=== PATIENT | female | born 1955 | race Caucasian/White ===

== ENCOUNTER → 2017-10-30 | Outpatient (CLI) | payer BC ==
[2017-10-30 11:19] LABS: CLARITY,URINE Clear (Clear); COLOR,URINE Yellow (Yellow); GLUCOSE, URINE Negative (Neg); KETONES,URINE Negative (Neg); LEUKOCYTE ESTERASE ,URINE Trace (Neg); NITRITES, URINE Negative (Neg); OCCULT BLOOD,URINE Negative (Neg); PROTEIN,URINE Negative (Neg); UROBILINOGEN,URINE 0.2 E.U/dL (0.2-1.0)
[2017-10-30 11:19] LABS: BASOPHILS % (AUTO) 0.4 % (0-1); EOSINOPHILS # (AUTO) 0.1 X10'3 (0-0.9); EOSINOPHILS % (AUTO) 2.6 % (0-6); HEMATOCRIT 38.3 % (35.0-45.0); HEMOGLOBIN 13.2 g/dl (12.0-16.0); LYMPHOCYTES # (AUTO) 1.5 X10'3 (1.1-4.8); LYMPHOCYTES % (AUTO) 29.3 % (21-51); MEAN CORPUSCULAR HEMOGLOBIN 30.1 PG (27.0-31.0); MEAN CORPUSCULAR HGB CONC 34.3 % (33.0-36.5); MEAN CORPUSCULAR VOLUME 87.6 FL (78-98); MONOCYTES # (AUTO) 0.5 X10'3 (0-0.9); MONOCYTES % (AUTO) 10.4 % (2-12); NEUTROPHILS # (AUTO) 3.1 X10'3 (1.8-7.7); NEUTROPHILS % (AUTO) 57.3 % (42-75); PLATELET COUNT 222 X10'3 (140-440); RED BLOOD COUNT 4.38 X10'6 (4.20-5.60); RED CELL DISTRIBUTION WIDTH 12.1 % (11.5-14.5); WHITE BLOOD COUNT 5.2 X10'3 (4.5-11.0)
[2017-10-30 11:25] LABS: PROTHROMBIN TIME 10.3 SECONDS (9.0-12.0)
[2017-10-30 11:42] LABS: UA COLLECTION TYPE CLN CATCH MIDSTREAM
[2017-10-30 11:43] LABS: ALANINE AMINOTRANSFERASE 30 U/L (12-78); ALBUMIN 3.7 G/DL (3.4-5.0); ALBUMIN/GLOBULIN RATIO 0.9 (1.1-1.5); ALKALINE PHOSPHATASE 62 IU/L (46-116); ANION GAP 3 (8-16); ASPARTATE AMINO TRANSFERASE 22 U/L (10-37); BILIRUBIN,TOTAL 0.5 MG/DL (0.1-1.0); BLOOD UREA NITROGEN 13 MG/DL (7-18); BUN/CREATININE RATIO 18.6 (6.6-38.0); CALCIUM 9.4 MG/DL (8.5-10.1); CHLORIDE 105 MMOL/L (99-107); GLUCOSE 87 MG/DL (70-104); POTASSIUM 4.4 MMOL/L (3.5-5.1); SODIUM 140 MMOL/L (135-145); TOTAL CARBON DIOXIDE 32.4 MMOL/L (24-32); TOTAL PROTEIN 7.7 G/DL (6.4-8.2); eGFR 84 ML/MIN
[2017-10-30 11:44] LABS: BACTERIA,URINE FEW /HPF (Neg); WBC,URINE 0-4 /HPF (0-4)
[2017-10-30 11:45] LABS: SQUAMOUS EPITHELIAL CELL,UR FEW /LPF (FEW)
== END ==
LOC: LAB 10:28
PROVIDERS: ATTEND Specialist
DX: Z01.818 Encounter for other preprocedural examination (principal); Z51.81 Encounter for therapeutic drug level monitoring; N39.0 Urinary tract infection, site not specified
CPT/HCPCS: 36415; 80053; 81001; 85025; 85610; 87070; 87088

== ENCOUNTER 2017-11-13 05:28 | Inpatient (IN) | payer BC ==
[~2017-11-13] VITALS: Ht 174 cm; Wt 98.5 kg
[2017-11-13] VITALS (17 sets, daily range): BP systolic 104–141; BP diastolic 60–82
[~2017-11-13 05:28] MED LIST: ACET-2319 PO; ACET-75 PO; ASPI-611 PO; CHOL400T PO; ESTR0.5T PO; MELA3TAB PO; MULT-38 PO; OMEG1000; TURM500C4; [UNRECOGNIZED DRUG - CODE] PO; ringers solution, lacted 1,000 ML IV SCH
[2017-11-13] MEDS ORDERED: famotidine 20mg tablet PO ONE (05:30)
[2017-11-13] MEDS ORDERED: cefazolin/dext.iso 2gm/50ml 50 ML IV ONE (05:30)
[2017-11-13] MEDS ORDERED: LIDOcaine 1% (10mg/ml) 2ml vial ONE (05:55)
[2017-11-13] MEDS ORDERED: gabapentin 300mg capsule PO ONE (06:11)
[2017-11-13] MEDS ORDERED: oxyCODONE SR 10mg (sust. release) tab PO ONE (06:11)
[2017-11-13] MEDS ORDERED: tranexamic acid inj. 1,000 MG in normal saline 100ml IV soln 90 ML IV ONE (06:15)
[2017-11-13] MEDS ORDERED: acetaminophen 325mg tablet PO ONE (06:15)
[2017-11-13] MEDS ORDERED: ROPIVAcaine 0.5% (5mg/ml) 30ml vial ONE ×2 (06:45→08:52)
[2017-11-13] MEDS ORDERED: bacitracin inj 150,000 UNIT in sodium chloride irrig. sol 3,000 ML IR ONE (07:00)
[2017-11-13] MEDS ORDERED: dexamethasone 4mg/ml inj ONE (07:18)
[2017-11-13] MEDS ORDERED: cloNIDine hcl/PF 100mcg/ml inj ONE (07:18)
[2017-11-13] MEDS ORDERED: diphenhydrAMINE 50 mg/ml inj ONE (07:18)
[2017-11-13] MEDS ORDERED: fentaNYL/PF 50MCG/1 ML 2ML syringe ONE (07:19)
[2017-11-13] MEDS ORDERED: midazolam 2 mg/2 ml injection ONE ×2 (07:19→07:20)
[2017-11-13] MEDS ORDERED: MORPHINE SULFATE/PF 0.5 MG/ML 10ML AMPUL ONE (07:31)
[2017-11-13] MEDS ORDERED: LIDOcaine 1%/PF (10mg/ml) 5ml vial ONE (07:52)
[2017-11-13] MEDS ORDERED: glycopyrrolate 0.2mg/ml inj ONE (08:52)
[2017-11-13] MEDS ORDERED: ceFAZolin 1000mg inj ONE (08:52)
[2017-11-13] MEDS ORDERED: propofol inj 20 ML IV ONE ×2 (08:52)
[2017-11-13] MEDS ORDERED: ringers solution, lacted 1,000 ML IV SCH (08:56)
[2017-11-13] MEDS ORDERED: naloxone 2mg/2ml inj 2 MG in normal saline 500ml IV soln 500 ML IV PRN (08:56)
[2017-11-13] MEDS ORDERED: meperidine/PF 25mg/ml syringe IV PRN ×3 (09:00)
[2017-11-13] MEDS ORDERED: morphine 2 MG/ML inj. syringe IV PRN ×2 (09:00)
[2017-11-13] MEDS ORDERED: ondansetron/PF 4mg/2ml inj IV PRN ×3 (09:00→10:15)
[2017-11-13] MEDS ORDERED: diphenhydrAMINE 50 mg/ml inj IV PRN (09:00)
[2017-11-13] MEDS ORDERED: proCHLORperazine 10 MG/2 ml inj IV PRN (09:00)
[2017-11-13] MEDS ORDERED: ePHEDrine 50MG/ML INJ. ONE (09:28)
[2017-11-13] MEDS ORDERED: epiNEPHrine 1 mg/ml inj ONE (09:28)
[2017-11-13] MEDS: potassium cl 20mEq in 1/2 NS 1,000 ML IV SCH ×2 (10:15→20:29)
[2017-11-13] MEDS ORDERED: HYDROmorphone 1 mg/ml syringe IV PRN (10:15)
[2017-11-13] MEDS ORDERED: bisacodyl 10mg suppository rectal RC PRN (10:15)
[2017-11-13] MEDS ORDERED: acetaminophen 325mg tablet PO PRN (10:15)
[2017-11-13] MEDS ORDERED: magnesium hydroxide 30ml (MOM) UD suspension PO PRN (10:15)
[2017-11-13] MEDS ORDERED: diphenhydrAMINE 25mg capsule PO PRN ×2 (10:15)
[2017-11-13] MEDS: gabapentin 300mg capsule PO SCH ×2 (14:17→20:28)
[2017-11-13] MEDS: acetaminophen 325mg tablet PO SCH ×2 (14:18→20:28)
[2017-11-13] MEDS: oxyCODONE IR 5mg (immed. release) tablet PO PRN ×2 (16:36→20:33)
[2017-11-13] MEDS: cefazolin 1gm/NS 100mL 100 ML IV SCH (16:36)
[2017-11-13] MEDS: ascorbic acid 500mg tablet PO SCH (20:28)
[2017-11-13] MEDS: celeCOXIB 100mg capsule PO SCH (20:28)
[2017-11-13] MEDS: sennosides 8.6mg tablet PO SCH (20:28)
[2017-11-14] MEDS: cefazolin 1gm/NS 100mL 100 ML IV SCH (00:32)
[2017-11-14 02:00] VITALS: BP 134/67
[2017-11-14] MEDS: acetaminophen 325mg tablet PO SCH ×4 (02:09→20:00)
[2017-11-14] MEDS: oxyCODONE IR 5mg (immed. release) tablet PO PRN ×3 (02:09→20:33)
[2017-11-14] MEDS: potassium cl 20mEq in 1/2 NS 1,000 ML IV SCH ×2 (02:15→05:42)
[2017-11-14 05:00] VITALS: BP 126/69
[2017-11-14 05:51] LABS: BASOPHILS % (AUTO) 0.3 % (0-1); EOSINOPHILS # (AUTO) 0.1 X10'3 (0-0.9); EOSINOPHILS % (AUTO) 1.4 % (0-6); HEMATOCRIT 28.9 % (35.0-45.0); HEMOGLOBIN 10.1 g/dl (12.0-16.0); LYMPHOCYTES # (AUTO) 1.5 X10'3 (1.1-4.8); LYMPHOCYTES % (AUTO) 21.4 % (21-51); MEAN CORPUSCULAR HEMOGLOBIN 29.8 PG (27.0-31.0); MEAN CORPUSCULAR HGB CONC 34.7 % (33.0-36.5); MEAN CORPUSCULAR VOLUME 85.9 FL (78-98); MEAN PLATELET VOLUME 8.2 FL (7.4-10.4); MONOCYTES # (AUTO) 0.9 X10'3 (0-0.9); MONOCYTES % (AUTO) 12.7 % (2-12); NEUTROPHILS # (AUTO) 4.4 X10'3 (1.8-7.7); NEUTROPHILS % (AUTO) 64.2 % (42-75); PLATELET COUNT 162 X10'3 (140-440); RED BLOOD COUNT 3.37 X10'6 (4.20-5.60); RED CELL DISTRIBUTION WIDTH 12.5 % (11.5-14.5); WHITE BLOOD COUNT 6.8 X10'3 (4.5-11.0)
[2017-11-14 05:59] LABS: INR 1.1 INR; PROTHROMBIN TIME 11.8 SECONDS (9.0-12.0)
[2017-11-14 06:00] LABS: ANION GAP 6 (8-16); CHLORIDE 107 MMOL/L (99-107); POTASSIUM 4.2 MMOL/L (3.5-5.1); SODIUM 141 MMOL/L (135-145); TOTAL CARBON DIOXIDE 27.6 MMOL/L (24-32)
[2017-11-14] MEDS: multivitamins, therapeutics tablet PO SCH (07:06)
[2017-11-14] MEDS: gabapentin 300mg capsule PO SCH ×3 (07:06→20:43)
[2017-11-14] MEDS: celeCOXIB 100mg capsule PO SCH ×2 (07:06→20:33)
[2017-11-14] MEDS: ascorbic acid 500mg tablet PO SCH ×2 (07:07→20:33)
[2017-11-14 10:00] VITALS: BP 139/65
[2017-11-14] MEDS ORDERED: warfarin 10mg tablet PO ONE (10:00)
[2017-11-14 15:00] VITALS: BP 144/70
[2017-11-14 18:00] VITALS: BP 151/72
[2017-11-14] MEDS: sennosides 8.6mg tablet PO SCH (20:34)
[2017-11-14 22:00] VITALS: BP 144/70
[2017-11-15] MEDS: acetaminophen 325mg tablet PO SCH ×3 (02:00→07:02)
[2017-11-15] MEDS: oxyCODONE IR 5mg (immed. release) tablet PO PRN (02:48)
[2017-11-15 06:00] VITALS: BP 146/61
[2017-11-15 06:38] LABS: INR 1.3 INR; PROTHROMBIN TIME 13.3 SECONDS (9.0-12.0)
[2017-11-15 06:43] LABS: BASOPHILS % (AUTO) 0.2 % (0-1); EOSINOPHILS # (AUTO) 0.2 X10'3 (0-0.9); EOSINOPHILS % (AUTO) 3.6 % (0-6); HEMOGLOBIN 11.2 g/dl (12.0-16.0); LYMPHOCYTES # (AUTO) 1.6 X10'3 (1.1-4.8); LYMPHOCYTES % (AUTO) 24.2 % (21-51); MEAN CORPUSCULAR HEMOGLOBIN 30.2 PG (27.0-31.0); MEAN CORPUSCULAR HGB CONC 35.1 % (33.0-36.5); MEAN CORPUSCULAR VOLUME 85.9 FL (78-98); MEAN PLATELET VOLUME 8.7 FL (7.4-10.4); MONOCYTES # (AUTO) 0.7 X10'3 (0-0.9); MONOCYTES % (AUTO) 11.1 % (2-12); NEUTROPHILS % (AUTO) 60.9 % (42-75); PLATELET COUNT 185 X10'3 (140-440); RED BLOOD COUNT 3.72 X10'6 (4.20-5.60); RED CELL DISTRIBUTION WIDTH 12.6 % (11.5-14.5); WHITE BLOOD COUNT 6.5 X10'3 (4.5-11.0)
[2017-11-15] MEDS: celeCOXIB 100mg capsule PO SCH (07:01)
[2017-11-15] MEDS: multivitamins, therapeutics tablet PO SCH (07:01)
[2017-11-15] MEDS: ascorbic acid 500mg tablet PO SCH (07:01)
[2017-11-15] MEDS: gabapentin 300mg capsule PO SCH (07:02)
[2017-11-15] MEDS ORDERED: ASPI-1 PO (07:19)
[2017-11-15] MEDS ORDERED: warfarin 7.5mg tablet PO ONE (10:00)
[2017-11-15] MEDS ORDERED: acetaminophen 325mg tablet PO PRN (10:15)
== END 2017-11-15 10:35 | disposition home health service (06) | DRG 470 ==
LOC: PAS IN 05:28 → EDSTATUS 07:30 → ORTHO 4S 11:04
PROVIDERS: ADMIT Specialist; ATTEND Specialist
PROC: 3E0T3BZ Introduction of Anesthetic Agent into Peripheral Nerves and Plexi, Percutaneous Approach (ICD-10-PCS; 2017-11-13)
PROC: 0SRC0J9 Replacement of Right Knee Joint with Synthetic Substitute, Cemented, Open Approach (ICD-10-PCS; principal; 2017-11-13 07:16)
DX: M17.11 Unilateral primary osteoarthritis, right knee (principal); D62 Acute posthemorrhagic anemia; J45.909 Unspecified asthma, uncomplicated; R42 Dizziness and giddiness; Z90.710 Acquired absence of both cervix and uterus; Z98.51 Tubal ligation status; Z88.5 Allergy status to narcotic agent; Z79.899 Other long term (current) drug therapy; Z79.82 Long term (current) use of aspirin
CPT/HCPCS: 36415; 73560; 80051; 85025; 85610; 97110; 97116; 97162; 97530; A6258; A6449; A6455; A7000; C1713; C1758; C1776; J0171; J0690; J0735; J1100; J1200; J2001; J2250; J2274; J2704; J2795; J3010; J3490; J7030; J7120; Q0163